=== PATIENT | male | born 1965 | race Two or more races ===

== ENCOUNTER 2021-01-24 02:54 | Emergency (ER) | payer OTHER, MEDICAID ==
[~2021-01-24] VITALS: Ht 157.5 cm; Wt 63.5 kg
--- NOTE | 2021-01-24 03:08 | NUR ---
PT AAOX4. [facility] FROM HOME C/O SI. PT WILL BE PLACED ON A HOLD. PLACED IN BED 11 IN GOWN, ON MONITOR, AND PULSE OX. BELONINGS PLACED IN LOCKER. ER AT BEDSIDE FOR EVAL. AWAITING EVAL AND ORDERS.
--- NOTE | 2021-01-24 03:18 | NUR ---
URINE COLLECTED, SENT TO LAB.
[2021-01-24 03:23] LABS: BASOPHILS # (AUTO) 0.1 K/uL (0.0-0.2); BASOPHILS % (AUTO) 0.6 % (0.0-2.0); EOSINOPHILS % (AUTO) 11.6 % (0.0-6.0); HEMATOCRIT 45 % (39-51); HEMOGLOBIN 15.6 g/dL (13.5-17.5); LYMPHOCYTES # (AUTO) 5.3 K/uL (0.8-4.8); LYMPHOCYTES % (AUTO) 51.8 % (20.0-44.0); MEAN CORPUSCULAR HGB CONC 34 g/dl (31.0-36.0); MEAN CORPUSCULAR VOLUME 91 fL (80-96); MONOCYTES # (AUTO) 0.7 K/uL (0.1-1.30); MONOCYTES % (AUTO) 6.7 % (2.0-12.0); NEUTROPHILS % (AUTO) 29.3 % (43.0-81.0); PLATELET COUNT (AUTO) 416 K/uL (150-450); RED BLOOD CELL COUNT(AUTO) 4.99 MIL/uL (4.5-6.0); WHITE BLOOD COUNT (AUTO) 10.3 K/uL (4.3-11.0)
--- NOTE | 2021-01-24 03:23 | NUR ---
COVID SWAB COLLECTED, SENT TO LAB.
[2021-01-24 03:59] LABS: ALANINE AMINOTRANSFERASE 22 U/L (12-78); ALBUMIN 3.6 g/dL (3.4-5.0); ALCOHOL, BLOOD 225 mg/dL (0-0); ALKALINE PHOSPHATASE 133 U/L (46-116); ASPARTATE AMINOTRANSFERASE 15 U/L (15-37); BILIRUBIN,DIRECT 0.1 mg/dL (0.0-0.2); BILIRUBIN,TOTAL 0.2 mg/dL (0.2-1.0); CALCIUM, SERUM 8.5 mg/dL (8.5-10.1); CARBON DIOXIDE 22 mmol/L (21-32); CHLORIDE 100 mmol/L (98-107); CREATININE 0.7 mg/dL (0.6-1.3); GLUCOSE 108 mg/dL (74-106); POTASSIUM 3.6 mmol/L (3.5-5.1); SODIUM SERUM 135 mmol/L (136-145); UREA NITROGEN, BLOOD 6 mg/dL (7-18)
[2021-01-24 04:05] LABS: ACETAMINOPHEN < 2 ug/ml (10-30)
[2021-01-24 04:16] LABS: BILIRUBIN,URINE NEGATIVE (NEGATIVE); COLOR,URINE YELLOW (YELLOW); LEUKOCYTE ESTERASE ,URINE NEGATIVE (NEGATIVE); NITRITE, URINE NEGATIVE (NEGATIVE); PH,URINE 5.5 (5.0-8.0); PROTEIN,URINE NEGATIVE (NEGATIVE); UGLUCOSE NEGATIVE (NEGATIVE); UROBILINOGEN,URINE 0.2 EU/dL (0.2)
--- NOTE | 2021-01-24 07:01 | NUR ---
PATIENT IS SLEEPING. EASILY AROUSABLE THROUGH VERBAL STIMULI. PATIENT IS CONNECTED TO THE MONITOR. VSS. BREATHING EVENLY AND UNLABORED ON ROOM AIR. SIDE RAILS UP FOR SAFETY. SITTER AT THE BEDSIDE.
--- NOTE | 2021-01-24 07:21 | NUR ---
ASSESSED PT ON BED ASLEEP EASILY AROUSABLE, NOT IN RESPIRATORY DISTRESS, V/S STABLE, KEPT RESTED AND COMFORTABLE. WILL CONTINUE TO MONITOR.
--- NOTE | 2021-01-24 10:13 | NUR ---
LEFT VOICEMAIL FOR [facility]ON[facility] RN [facility] FOR PSYCH EVAL.
--- NOTE | 2021-01-24 11:39 | NUR ---
CALLED TON[facility], [facility], AND ESTHER
--- NOTE | 2021-01-24 15:33 | NUR ---
FAXED CLINICALS AND FACESHEET TO [facility]
--- NOTE | 2021-01-24 15:38 | NUR ---
SPOKE WITH JUDIT FROM [facility] INTAKE. HAS NOT RECEIVED FAX YET. HAS BED AVAILABILITY
--- NOTE | 2021-01-24 17:20 | NUR ---
SPOKE WITH LIMA FROM [facility] TO VERIFY INSURANCE
--- NOTE | 2021-01-24 20:04 | NUR ---
CALLED [facility] INTAKE AND SPOKE TO ART. THEY'RE STILL WORKING ON THE ACCEPTANCE. [facility] MADE AWAR OF THE BROKEN HOLD
--- NOTE | 2021-01-24 20:10 | NUR ---
FAXED THE DISCONINUATION OF [id number] TO [facility].
--- NOTE | 2021-01-24 20:15 | NUR ---
REFAXED ALL THE CLINICALS TO [facility]
--- NOTE | 2021-01-24 22:14 | NUR ---
ACCEPTED AT [facility] UNIT [address] NUMBER FOR REPORT ACCEPTING MD DR KEITA
--- NOTE | 2021-01-24 22:19 | NUR ---
ARRANGED TRANSPORT WITH [facility] FOR TRANSFER TO [facility]. ETA 00:00-01:30
[2021-01-24 22:41] VITALS: BP 120/89
--- NOTE | 2021-01-24 22:50 | NUR ---
REPORT GIVEN TO LUCIE STERN FOR [facility]
--- NOTE | 2021-01-24 23:44 | NUR ---
REPORT GIVEN AMBULANCE TEAM FOR [facility]. AND TRANSFERRING RESPONSIBILITIES.
--- NOTE | 2021-01-24 23:55 | NUR ---
pt was picked up by [facility] ambulance and was transferred to [facility] in stable coondition. all belongings were picked up by pt,.
== END 2021-01-25 00:06 ==
LOC: ER 02:58
DX: R45.851 Suicidal ideations (principal); F32.9 Major depressive disorder, single episode, unspecified; Z91.14 Patient's other noncompliance with medication regimen; I10 Essential (primary) hypertension; R00.0 Tachycardia, unspecified; Z82.49 Family history of ischemic heart disease and other diseases of the circulatory system; Z20.822 Contact with and (suspected) exposure to COVID-19; F10.129 Alcohol abuse with intoxication, unspecified; Y90.7 Blood alcohol level of 200-239 mg/100 ml
CPT/HCPCS: 36415; 80048; 80076; 80143; 80307; 80320 ×2; 81003; 85025; 87426; 99285; C9803; G0480